=== PATIENT | female | born 1940 | race Caucasian/White ===

== ENCOUNTER 2017-05-03 15:42 | Outpatient (CLI) | payer MEDICARE, OTHER | END 2017-05-03 15:43 | disposition home or self-care (01) | LOC: LAB.R 15:42 | PROVIDERS: ATTEND Nurse Practitioner Primary Care | DX: M16.11 Unilateral primary osteoarthritis, right hip (principal); Z01.812 Encounter for preprocedural laboratory examination | CPT/HCPCS: 87081; 87640 ==

== ENCOUNTER 2017-05-04 07:55 | Outpatient (CLI) | payer MEDICARE, OTHER ==
[2017-05-04 15:48] LABS: BASOPHILS % (AUTO) 0.6 %; EOSINOPHILS # (AUTO) 0.1 10^3/uL (0.0-0.7); EOSINOPHILS % (AUTO) 1.3 %; HCT - HEMATOCRIT 38.5 % (37.0-47.0); HGB - HEMOGLOBIN 12.9 g/dL (12.0-16.0); LYMPHOCYTES # (AUTO) 1.2 10^3/uL (1.5-3.5); LYMPHOCYTES % (AUTO) 31.1 %; MEAN CORPUSCULAR HEMOGLOBIN 32.5 pg (27.0-31.0); MEAN CORPUSCULAR HGB CONC 33.5 g/dL (32.0-36.0); MEAN CORPUSCULAR VOLUME 97.1 fL (81.0-99.0); MEAN PLATELET VOLUME 8.3 fL (7.9-10.8); MONOCYTES # (AUTO) 0.4 10^3/uL (0.0-1.0); MONOCYTES % (AUTO) 10.8 %; NEUTROPHILS # (AUTO) 2.2 10^3/uL (1.5-6.6); NEUTROPHILS % (AUTO) 56.2 %; NUCLEATED RED BLOOD CELLS AUTO 0.1 /100WBC; RED BLOOD COUNT 3.97 10^6/uL (4.20-5.40); RED CELL DISTRIBUTION WIDTH 13.1 % (12.0-15.0); UNCORRECTED WHITE BLOOD COUNT 3.9 x10^3/uL; WHITE BLOOD COUNT 3.9 x10^3/uL (4.8-10.8)
[2017-05-04 15:56] LABS: ALBUMIN/GLOBULIN RATIO 1.4 (1.0-2.2); BILIRUBIN,TOTAL 0.9 mg/dL (0.2-1.0); CALCIUM 8.9 mg/dL (8.5-10.3); CREATININE 0.9 mg/dL (0.4-1.0); TOTAL PROTEIN 7.1 g/dL (6.7-8.2)
== END 2017-05-04 07:56 | disposition home or self-care (01) ==
LOC: LAB.R 07:55
PROVIDERS: ATTEND Nurse Practitioner Primary Care
DX: M16.11 Unilateral primary osteoarthritis, right hip (principal); Z01.812 Encounter for preprocedural laboratory examination; Z01.818 Encounter for other preprocedural examination
CPT/HCPCS: 80053; 85025

== ENCOUNTER 2017-06-13 06:10 | Inpatient (IN) | payer MEDICARE, OTHER ==
[2017-06-13] MEDS ORDERED: LACTATED RINGERS 1,000 ML IV ONE ×2 (06:27→08:20)
[2017-06-13] MEDS ORDERED: ceFAZolin 2 GM/50 ML 50 ML IV ONE (06:33)
[2017-06-13] MEDS ORDERED: BUPIVACAINE 0.5%-EPI 1:200000 PF 10 ML VIAL SUBQ ONE (08:15)
[2017-06-13] MEDS ORDERED: MORPHINE PF 5 MG/10 ML AMP SUBQ ONE ×2 (08:15→09:14)
[2017-06-13] MEDS ORDERED: ROPIVACAINE 0.2% PF 20 ML AMPULE SUBQ ONE ×2 (08:15→09:14)
[2017-06-13] MEDS ORDERED: KETOROLAC 15 MG/ML VIAL IVP ONE ×2 (08:15→09:14)
[2017-06-13] MEDS ORDERED: EPINEPHrine 1 MG/ML AMP IVP ONE ×2 (08:15→09:14)
[2017-06-13] MEDS ORDERED: DEXAMETHASONE 4 MG/ML VIAL IVP ONE (08:20)
[2017-06-13] MEDS ORDERED: ONDANSETRON 4 MG/2 ML VIAL IVP ONE (08:20)
[2017-06-13] MEDS ORDERED: ACETAMINOPHEN 1,000 MG/100 ML 100 ML IV ONE (08:20)
[2017-06-13] MEDS ORDERED: PROPOFOL 200 MG/20 ML VIAL IVP ONE (08:20)
[2017-06-13] MEDS ORDERED: ePHEDrine 50 MG/ML VIAL IVP ONE (08:20)
[2017-06-13] MEDS ORDERED: fentaNYL 100 MCG/2 ML VIAL IVP ONE (08:20)
[2017-06-13] MEDS ORDERED: MIDAZOLAM 2 MG/2 ML VIAL IVP ONE (08:20)
[2017-06-13] MEDS ORDERED: KETOROLAC 30 MG/ML VIAL IVP ONE (08:20)
[2017-06-13] MEDS ORDERED: TRANEXAMIC ACID 1,000 MG/10 ML VIAL IV ONE (08:20)
[2017-06-13] MEDS ORDERED: PROCHLORPERAZINE 10 MG/2 ML VIAL IVP PRN (09:36)
[2017-06-13] MEDS ORDERED: SODIUM CHLORIDE FLUSH 0.9% 10 ML SYRINGE IVP PRN (09:36)
[2017-06-13] MEDS ORDERED: oxyCOD/ACETAMIN 5 MG/325 MG TABLET PO PRN (09:36)
[2017-06-13] MEDS ORDERED: HYDROmorphone 1 MG/ML SYRINGE IVP PRN (09:36)
--- NOTE | 2017-06-13 09:36 | OPERATIVE REPORT ---
Operative Report - General Admit Date: 06/13/17 Procedure Date: 06/13/17 Planned Procedure: Right VIRI Pre-Op Diagnosis: djd RIGHT HIP Procedure Performed: rIGHT viri Post Op Diagnosis: same - Procedure Note Primary Surgeon: morena Anesthesia Technique: Spinal Estimated Blood Loss (mL): 200
--- NOTE | 2017-06-13 10:41 | XRAY Report ---
RIGHT HIP AND PELVIS: 06/13/2017 CLINICAL INDICATION: Post-op hip replacement. FINDINGS: Frontal view of the hips and pelvis and cross table lateral view of the right hip demonstr ate a right hip replacement in place. There is no evidence of fracture or hardware complication. IMPRESSION: EXPECTED POSTOPERATIVE APPEARANCE OF RIGHT HIP REPLACEMENT. JOB #: [id number] EXT JOB #:[id number]
[2017-06-13] MEDS: SODIUM CHLORIDE 0.45% 1,000 ML IV SCH ×2 (10:55→20:22)
[2017-06-13] MEDS: ONDANSETRON 4 MG/2 ML VIAL IVP PRN ×2 (11:03→18:44)
[2017-06-13] MEDS: SODIUM CHLORIDE FLUSH 0.9% 10 ML SYRINGE IVP SCH ×2 (13:48→18:44)
--- NOTE | 2017-06-13 14:02 | OPERATIVE REPORT ---
DATE OF SURGERY: 06/13/2017 00:00:00 PREOPERATIVE DIAGNOSIS: Right hip osteoarthritis. POSTOPERATIVE DIAGNOSIS: Right hip osteoarthritis. NAME OF PROCEDURE: Right hip total hip arthroplasty. SURGEON: Kristyn Hurt MD ANESTHESIA: Spinal, Renan Whitt. INDICATIONS FOR SURGERY: The patient is a 76-year-old female with progressive osteoarthritis of her r ight hip causing her limping and functional limitations and not responding to conservative care. She now elects total hip arthroplasty. FINDINGS AT SURGERY: The patient's hip showed [id number] articulation, overgrowth of spurring on th e femoral head and malformation of the femoral head due to deformity. The patient had synovitis of th e hip joint. DESCRIPTION OF OPERATIVE PROCEDURE: The patient was taken to the operating room and given a spinal an esthetic. She was placed in a supine position appropriate for an anterior approach with a wedge betwe en her sacrum and positioned so that the break in the table could allow extension of the hip. Both hi ps were sterilely prepped and draped in standard fashion. An [place] drape was used to isolate the area of the anterolateral approach, and a timeout was held, and then, a 7 cm to 8 cm incision was made in appropriate plane angled off the anterior superior iliac crest towards the greater trochanter. The i nterval was developed retracting the tensor fascia laterally and the remaining tissues medially and d iving directly down onto the anterior hip capsule, and this interval was developed. Soft tissue remov ed. Electrocautery controlled bleeding. Capsule was excised, and retractors were positioned intracaps ular to allow exposure of the femoral neck where an osteotomy was made and the femoral head removed. Then, retractors were positioned around the acetabulum for preparation and insertion of an acetabular cup, and reaming was taken up to 49 mm to accommodate a 50 mm G7 Biomet cup, which was inserted and fixed with a 30 mm screw with poly inserted that was standard poly in the cup E1 antioxidant. The fem ur was then brought into the field by special placement of retractors and release of some of the caps ule and tissues around the neck of the femur, drawing the femur into position with a break in the tab le and the leg placed into adduction and external rotation. This allowed direct insertion of reamers into the proximal femur and broaches, taking the broaching to a size 10 for insertion of the Taperloc stem, which was a standard offset type 1 taper in an 11 x 142 size stem. The stem was inserted, and trial reduction was done off the neck, and the appropriate head size was a standard head size with 38 mm diameter head. This restored limb lengths to very close to normal given the patient had about a 1 inch deficit to begin with and was within millimeters of equal. The area was irrigated very thorough ly. The hip was checked for stability and was excellent. Closure was with FiberWire in the fascial la tracy, followed by Vicryl in subcutaneous tissue and Monocryl in skin. Sterile dressings were applied, and the patient was taken to recovery room in stable condition. ESTIMATED BLOOD LOSS: Minimal. COMPLICATIONS: None. SPONGE AND NEEDLE COUNTS: Correct. IMPLANTS: The implanted components were Biomet G7 three hole cup, 50 mm shell, G7 liner of E1 antioxi dant infused, 36 mm head size D liner. The stem used was a Taperloc porous stem 11 x 142 mm. JOB #: [id number] EXT JOB #:[id number]
[2017-06-13] MEDS: ceFAZolin 2 GM/50 ML 50 ML IV SCH ×2 (15:08→20:22)
[2017-06-13] MEDS: ATORVASTATIN 10 MG TABLET PO SCH (20:22)
[2017-06-14 05:28] LABS: HCT - HEMATOCRIT 30.6 % (37.0-47.0); HGB - HEMOGLOBIN 10.6 g/dL (12.0-16.0)
[2017-06-14 05:37] LABS: CALCIUM 8.2 mg/dL (8.5-10.3); CREATININE 0.9 mg/dL (0.4-1.0); POTASSIUM 4.2 mmol/L (3.5-5.0)
[2017-06-14] MEDS: SODIUM CHLORIDE 0.45% 1,000 ML IV SCH ×2 (06:38→07:02)
[2017-06-14] MEDS: SODIUM CHLORIDE FLUSH 0.9% 10 ML SYRINGE IVP SCH ×3 (06:38→20:10)
--- NOTE | 2017-06-14 07:34 | PROVIDER PROGRESS NOTE ---
Subjective - General Admit Date: 06/13/17 Procedure Date: 06/13/17 Post Op Days: 1 Procedure Performed: right Total Hip Arthroplasty - Review of Systems Wound/Incisions: positive: Dressing dry and intact Gastrointestinal: positive: No symptoms Musculoskeletal: positive: Joint pain Objective - Patient Data Reviewed Vital Signs: Yes Vital Signs: Vital Signs x48h Temp Pulse Resp BP Pulse Ox 06/14/17 05:42 36.9 C 73 18 113/51 L 999 H 06/14/17 00:30 36.5 C 73 18 113/62 100 Weight: Weight 06/12/17 06/13/17 06/14/17 23:59 23:59 23:59 Weight (kg) 80 kg Intake & Output: Intake and Output Totals x24h 06/12/17 06/13/17 06/14/17 23:59 23:59 23:59 Intake Total 2970 300 Output Total 1800 1700 Balance 1170 -1400 - Lab Results Lab Results: 06/14/17 04:47 06/14/17 04:47 Other Lab Results: Lab Results x24hrs 06/14/17 06/14/17 Range/Units 04:47 04:47 Hgb 10.6 L (12.0-16.0) g/dL Hct 30.6 L (37.0-47.0) % Sodium 135 (135-145) mmol/L Potassium 4.2 (3.5-5.0) mmol/L Chloride 103 (101-111) mmol/L Carbon Dioxide 24 (21-32) mmol/L Anion Gap 8.0 (6-13) BUN 15 (6-20) mg/dL Creatinine 0.9 (0.4-1.0) mg/dL Estimated GFR (MDRD) 61 L (>89) Glucose 138 H (70-100) mg/dL Calcium 8.2 L (8.5-10.3) mg/dL - Imaging Results Radiology Imaging: positive: EMP read indepedently - Current Medications Current Medications: Current Medications Generic Name Dose Route Start Last Admin Trade Name Freq PRN Reason Stop Dose Admin Atorvastatin Calcium 20 mg 06/13/17 21:00 06/13/17 20:22 Lipitor PO 20 mg QPM ESTHER Administration Sodium Chloride 1,000 mls @ 100 mls/hr 06/13/17 10:00 06/14/17 07:02 Normal Saline 0.45% IV 100 mls/hr .Q10H ESTHER Administration Ondansetron HCl 4 mg 06/13/17 09:36 06/13/17 18:44 Zofran Inj IVP 4 mg Q6HR PRN Administration Nausea / Vomiting Sodium Chloride 10 ml 06/13/17 09:36 06/13/17 20:22 Normal Saline Flush 0.9% IVP 10 ml PRN PRN Administration NEEDED PER PROVIDER ORDERS Sodium Chloride 10 ml 06/13/17 14:00 06/14/17 06:38 Normal Saline Flush 0.9% IVP Not Given Q8HR ESTHER - Physical Exam Wound/Incisions: positive: Dressing dry and intact Neurologic/Psychiatric: positive: Motor nml, Sensation nml, Mood/affect nml Impression/Plan - Problem List Problem List: POD #1 Pt is doing well Will begin more aggressive PT
[2017-06-14] MEDS: ATENOLOL 25 MG TABLET PO SCH (08:05)
[2017-06-14] MEDS: MULTIVITAMIN TABLET PO SCH (08:05)
[2017-06-14] MEDS: ENOXAPARIN 40 MG/0.4 ML SYRINGE SUBQ SCH (08:06)
[2017-06-14] MEDS: TIMOLOL 0.25% OPHTH DROPS EACHEYE SCH (08:20)
[2017-06-14] MEDS ORDERED: SODIUM CHLORIDE 0.45% 1,000 ML IV SCH ×3 (08:33→11:00)
[2017-06-14] MEDS: CYCLOSPORINE OPTHALMIC EACHEYE SCH ×2 (08:56→21:39)
[2017-06-14] MEDS ORDERED: NON FORMULARY MED (Cyclosporine [Restasis] 1 DROPS) EACHEYE SCH (09:00)
[2017-06-14] MEDS ORDERED: POLYETHYLENE GLYCOL 3350 17 GM PACKET PO SCH (09:00)
[2017-06-14] MEDS: ACETAMINOPHEN 325 MG TABLET PO PRN ×2 (09:45→16:42)
[2017-06-14] MEDS: ATORVASTATIN 10 MG TABLET PO SCH (21:38)
[2017-06-15 05:56] LABS: HCT - HEMATOCRIT 28.7 % (37.0-47.0); HGB - HEMOGLOBIN 9.9 g/dL (12.0-16.0); MEAN CORPUSCULAR HGB CONC 34.4 g/dL (32.0-36.0); MEAN PLATELET VOLUME 8.6 fL (7.9-10.8); RED BLOOD COUNT 2.99 10^6/uL (4.20-5.40); RED CELL DISTRIBUTION WIDTH 13.8 % (12.0-15.0)
[2017-06-15] MEDS: SODIUM CHLORIDE FLUSH 0.9% 10 ML SYRINGE IVP SCH ×3 (06:16→20:41)
[2017-06-15] MEDS: TIMOLOL 0.25% OPHTH DROPS EACHEYE SCH (08:22)
[2017-06-15] MEDS: ENOXAPARIN 40 MG/0.4 ML SYRINGE SUBQ SCH (08:23)
[2017-06-15] MEDS: CYCLOSPORINE OPTHALMIC EACHEYE SCH ×2 (08:23→20:41)
[2017-06-15] MEDS: MULTIVITAMIN TABLET PO SCH (08:23)
[2017-06-15] MEDS: ATENOLOL 25 MG TABLET PO SCH (08:23)
[2017-06-15] MEDS: ACETAMINOPHEN 325 MG TABLET PO PRN (10:35)
--- NOTE | 2017-06-15 10:49 | PROVIDER PROGRESS NOTE ---
Subjective - General Admit Date: 06/13/17 Procedure Date: 06/13/17 Post Op Days: 2 Procedure Performed: right Total Hip Arthroplasty - Review of Systems Wound/Incisions: positive: Dressing dry and intact General: positive: No symptoms Gastrointestinal: positive: No symptoms Musculoskeletal: positive: Joint pain Objective - Patient Data Reviewed Vital Signs: Yes Vital Signs: Vital Signs x48h Temp Pulse Resp BP Pulse Ox 06/15/17 07:48 37.8 C H 92 18 117/54 L 94 06/15/17 04:00 37.8 C H 93 20 129/53 L 94 Weight: Weight 06/13/17 06/14/17 06/15/17 23:59 23:59 23:59 Weight (kg) 80 kg Intake & Output: Intake and Output Totals x24h 06/13/17 06/14/17 06/15/17 23:59 23:59 23:59 Intake Total 2970 2440 732 Output Total 1800 2500 550 Balance 1170 -60 182 - Lab Results Lab Results: 06/15/17 04:49 06/14/17 04:47 Other Lab Results: Lab Results x24hrs 06/15/17 Range/Units 04:49 WBC 5.0 (4.8-10.8) x10^3/uL RBC 2.99 L (4.20-5.40) 10^6/uL Hgb 9.9 L (12.0-16.0) g/dL Hct 28.7 L (37.0-47.0) % MCV 96.0 (81.0-99.0) fL MCH 33.0 H (27.0-31.0) pg MCHC 34.4 (32.0-36.0) g/dL RDW 13.8 (12.0-15.0) % Plt Count 153 (130-450) 10^3/uL MPV 8.6 (7.9-10.8) fL - Current Medications Current Medications: Current Medications Generic Name Dose Route Start Last Admin Trade Name Freq PRN Reason Stop Dose Admin Acetaminophen 650 - 975 mg 06/13/17 09:36 06/15/17 10:35 Tylenol PO 650 mg Q4HR PRN Administration PAIN Atenolol 25 mg 06/14/17 09:00 06/15/17 08:23 Tenormin PO 25 mg DAILY ESTHER Administration Atorvastatin Calcium 20 mg 06/13/17 21:00 06/14/17 21:38 Lipitor PO 20 mg QPM ESTHER Administration Enoxaparin Sodium 40 mg 06/14/17 09:00 06/15/17 08:23 Lovenox SUBQ 40 mg DAILY ESTHER Administration Sodium Chloride 1,000 mls @ 0 mls/hr 06/14/17 11:00 06/15/17 06:15 Normal Saline 0.45% IV 30 mls/hr .Q0M ESTHER Administration TKO Multivitamins 1 tab 06/14/17 08:00 06/15/17 08:23 Theragran PO 1 tab DAILYWM ESTHER Administration Ondansetron HCl 4 mg 06/13/17 09:36 06/13/17 18:44 Zofran Inj IVP 4 mg Q6HR PRN Administration Nausea / Vomiting (Cyclosporine [ 1 each 06/14/17 09:00 06/15/17 08:23 Restasis] Opthalmic EACHEYE 1 each Drops) BID ESTHER Administration Sodium Chloride 10 ml 06/13/17 09:36 06/13/17 20:22 Normal Saline Flush 0.9% IVP 10 ml PRN PRN Administration NEEDED PER PROVIDER ORDERS Sodium Chloride 10 ml 06/13/17 14:00 06/15/17 06:16 Normal Saline Flush 0.9% IVP Not Given Q8HR ESTHER Timolol Maleate 1 drops 06/14/17 09:00 06/15/17 08:22 Timoptic 0.25% Ophth Drops EACHEYE 1 drops DAILY ESTHER Administration - Physical Exam Wound/Incisions: positive: Dressing dry and intact Abdomen: positive: Non-tender Impression/Plan - Problem List Problem List: POD #2 Pt is more comfortable today and doing well with PT. Plan on D/C to home in am.
[2017-06-15] MEDS: ATORVASTATIN 10 MG TABLET PO SCH (20:40)
[2017-06-16] MEDS: ACETAMINOPHEN 325 MG TABLET PO PRN (03:35)
[2017-06-16] MEDS: SODIUM CHLORIDE FLUSH 0.9% 10 ML SYRINGE IVP SCH (05:47)
--- NOTE | 2017-06-16 08:39 | PROVIDER PROGRESS NOTE ---
Subjective - General Admit Date: 06/13/17 Procedure Date: 06/13/17 Post Op Days: 3 Procedure Performed: right Total Hip Arthroplasty - Review of Systems Wound/Incisions: positive: Dressing dry and intact General: positive: No symptoms Gastrointestinal: positive: No symptoms Musculoskeletal: positive: Joint pain Objective - Patient Data Reviewed Vital Signs: Yes Vital Signs: Vital Signs x48h Temp Pulse Resp BP Pulse Ox 06/16/17 03:35 37.1 C 84 18 128/51 L 94 Intake & Output: Intake and Output Totals x24h 06/14/17 06/15/17 06/16/17 23:59 23:59 23:59 Intake Total 2440 1715 Output Total 2500 600 500 Balance -60 1115 -500 - Lab Results Lab Results: 06/15/17 04:49 06/14/17 04:47 - Current Medications Current Medications: Current Medications Generic Name Dose Route Start Last Admin Trade Name Freq PRN Reason Stop Dose Admin Acetaminophen 650 - 975 mg 06/13/17 09:36 06/16/17 03:35 Tylenol PO 650 mg Q4HR PRN Administration PAIN Atenolol 25 mg 06/14/17 09:00 06/15/17 08:23 Tenormin PO 25 mg DAILY ESTHER Administration Atorvastatin Calcium 20 mg 06/13/17 21:00 06/15/17 20:40 Lipitor PO 20 mg QPM ESTHER Administration Enoxaparin Sodium 40 mg 06/14/17 09:00 06/15/17 08:23 Lovenox SUBQ 40 mg DAILY ESTHER Administration Sodium Chloride 1,000 mls @ 0 mls/hr 06/14/17 11:00 06/15/17 06:15 Normal Saline 0.45% IV 30 mls/hr .Q0M ESTHER Administration TKO Multivitamins 1 tab 06/14/17 08:00 06/15/17 08:23 Theragran PO 1 tab DAILYWM ESTHER Administration Ondansetron HCl 4 mg 06/13/17 09:36 06/13/17 18:44 Zofran Inj IVP 4 mg Q6HR PRN Administration Nausea / Vomiting (Cyclosporine [ 1 each 06/14/17 09:00 06/15/17 20:41 Restasis] Opthalmic EACHEYE 1 each Drops) BID ESTHER Administration Sodium Chloride 10 ml 06/13/17 09:36 06/13/17 20:22 Normal Saline Flush 0.9% IVP 10 ml PRN PRN Administration NEEDED PER PROVIDER ORDERS Sodium Chloride 10 ml 06/13/17 14:00 06/16/17 05:47 Normal Saline Flush 0.9% IVP Not Given Q8HR ESTHER Timolol Maleate 1 drops 06/14/17 09:00 06/15/17 08:22 Timoptic 0.25% Ophth Drops EACHEYE 1 drops DAILY ESTHER Administration - Physical Exam Wound/Incisions: positive: Healing well Extremities: positive: Joint swelling Neurologic/Psychiatric: positive: Motor nml, Sensation nml, Mood/affect nml Impression/Plan - Problem List Problem List: pOD#3 Pt is ready for d/c to home. instructions given and f/u in clinic next week.
--- NOTE | 2017-06-16 08:43 | Discharge Plan ---
Discharge Plan Disposition: Home, Self Care Condition: Good Prescriptions: oxyCODONE/ACET 5/325 [Percocet 5 mg/325 mg] 1 tab PO Q4HR PRN #20 tablet PRN Reason: Pain Enoxaparin [Lovenox] 40 mg SUBQ DAILY #10 syringe Sennosides [Senna Laxative] 8.6 mg PO 1-2XD PRN #20 tablet PRN Reason: Constipation Diet: Regular Activity Restrictions: Wt Bearing as Tolerated Shower Restrictions: Yes (cover right hip wound) Driving Restrictions: Yes (no driving) Assistance Devices: Walker Weight Bearing: Full Weight Additional Instructions or Follow Up instructions: F/U in ortho clinic in 1 week. No Smoking: If you smoke, Please STOP! Call for help. Follow-up with: Marisa Carrington PA-C [Primary Care Provider] - Kristyn Hurt MD [Provider Admit Priv/Credential] -
[2017-06-16 08:52] VITALS: BP 107/46
[2017-06-16] MEDS: ENOXAPARIN 40 MG/0.4 ML SYRINGE SUBQ SCH (09:22)
[2017-06-16] MEDS: MULTIVITAMIN TABLET PO SCH (09:22)
[2017-06-16] MEDS: ATENOLOL 25 MG TABLET PO SCH (09:22)
[2017-06-16] MEDS: TIMOLOL 0.25% OPHTH DROPS EACHEYE SCH (09:23)
[2017-06-16] MEDS: CYCLOSPORINE OPTHALMIC EACHEYE SCH (09:23)
--- NOTE | 2017-06-19 16:38 | DISCHARGE SUMMARY ---
DATE OF ADMISSION: 06/13/2017 DATE OF DISCHARGE: 06/16/2017 DATE OF SURGERY: 06/13/2017, a right total hip arthroplasty. REASON FOR ADMISSION: The patient is a 76-year-old female with increasing pain in her right hip secon aby to osteoarthritis. The patient has failed conservative care and desires total hip arthroplasty. The patient's prior medical history and medications are detailed in her admit note. HOSPITAL COURSE: The patient was admitted and underwent surgery on 06/13/2017. The patient tolerated this procedure well and was admitted to the medical/surgical floor for standard postoperative care af ter hip replacement including IV antibiotics, early physical therapy, DVT prophylaxis and pain contro l. At the time of discharge, the patient was ambulatory with a walker. She was having very little dis comfort. She was utilizing Lovenox injections for DVT prophylaxis. At this point, she was discharged to home with planned followup in my office within a week. Her medications were to be Tylenol for pain and Lovenox injections and laxatives for constipation. JOB #: [id number] EXT JOB #:[id number]
== END 2017-06-16 10:30 | disposition home or self-care (01) | DRG 470 ==
LOC: MS3 06:10
PROVIDERS: ADMIT Orthopaedic Surgery; ATTEND Orthopaedic Surgery
PROC: 0SR902Z Replacement of Right Hip Joint with Metal on Polyethylene Synthetic Substitute, Open Approach (ICD-10-PCS; principal; 2017-06-13 07:30)
DX: M16.11 Unilateral primary osteoarthritis, right hip (principal); G89.29 Other chronic pain; I10 Essential (primary) hypertension
CPT/HCPCS: 36415; 80048; 85014; 85018

== ENCOUNTER → 2018-06-12 | Outpatient (CLI) | payer MEDICARE, OTHER ==
[2018-06-12 17:09] LABS: BASOPHILS % (AUTO) 0.8 %; EOSINOPHILS # (AUTO) 0.1 10^3/uL (0.0-0.7); EOSINOPHILS % (AUTO) 1.6 %; HGB - HEMOGLOBIN 14.1 g/dL (12.0-16.0); LYMPHOCYTES # (AUTO) 1.2 10^3/uL (1.5-3.5); LYMPHOCYTES % (AUTO) 31.3 %; MEAN CORPUSCULAR HGB CONC 34.3 g/dL (32.0-36.0); MEAN CORPUSCULAR VOLUME 93.4 fL (81.0-99.0); MEAN PLATELET VOLUME 9.1 fL (7.9-10.8); MONOCYTES # (AUTO) 0.4 10^3/uL (0.0-1.0); MONOCYTES % (AUTO) 10.9 %; NEUTROPHILS # (AUTO) 2.1 10^3/uL (1.5-6.6); NEUTROPHILS % (AUTO) 55.4 %; PLT - PLATELET COUNT 206 10^3/uL (130-450); RED CELL DISTRIBUTION WIDTH 13.3 % (12.0-15.0); WHITE BLOOD COUNT 3.7 x10^3/uL (4.8-10.8)
[2018-06-12 17:17] LABS: ALBUMIN 4.3 g/dL (3.2-5.5); ALBUMIN/GLOBULIN RATIO 1.4 (1.0-2.2); ALKALINE PHOSPHATASE 74 IU/L (42-121); ALT ALANINE AMINOTRANSFERASE 17 IU/L (10-60); AST ASPARTATE AMINOTRANSFERASE 17 IU/L (10-42); BILIRUBIN,TOTAL 0.9 mg/dL (0.2-1.0); BUN - BLOOD UREA NITROGEN 22 mg/dL (6-20); CARBON DIOXIDE - CO2 26 mmol/L (21-32); CHLORIDE 102 mmol/L (101-111); CHOL/HDL RATIO 3.2 (<4.4); CHOLESTEROL 199 mg/dL; CREATININE 0.8 mg/dL (0.4-1.0); GFR - MDRD 70 (>89); GLUCOSE 93 mg/dL (70-100); HDL CHOLESTEROL 63 mg/dL; LDL CHOLESTEROL,CALCULATED 103 mg/dL; LDL/HDL RATIO 1.6 (<4.4); SODIUM 137 mmol/L (135-145); TOTAL PROTEIN 7.3 g/dL (6.7-8.2); VLDL CHOLESTEROL 33 mg/dL
== END ==
LOC: LAB.R 08:00
PROVIDERS: ATTEND Physician Assistant Medical
DX: Z79.899 Other long term (current) drug therapy (principal); G60.9 Hereditary and idiopathic neuropathy, unspecified; E78.2 Mixed hyperlipidemia; M15.9 Polyosteoarthritis, unspecified; I10 Essential (primary) hypertension
CPT/HCPCS: 80053; 80061; 82306; 83721; 84443; 85025

== ENCOUNTER 2018-06-29 08:06 | Outpatient (CLI) | payer MEDICARE, OTHER ==
--- NOTE | 2018-07-02 13:36 | Mammography Report ---
Reason: SCREENING MAMMO Procedure Date: 06/29/2018 Accession Number: [id number] / [id number] Procedure: JEFF - Screening Mammo Dig Bilat CPT Code: FULL RESULT: EXAM: Screening Mammo Dig Bilat DATE: 06/29/2018 8:31 AM CLINICAL HISTORY: 77 year-old nulliparous female presents for screening mammogram. TECHNIQUE: Bilateral CC and MLO views were obtained. COMPARISON: 05/30/2016, 06/13/2014, 11/08/2011, 10/07/2009. FINDINGS: The breasts demonstrate scattered fibroglandular densities bilaterally. A 3.5 mm hyperdense nodule in the left breast at the 8:00 position approximately 6.5 cm deep to the nipple is not definitely seen on previous studies and requires additional imaging including spot views, possible, symphysis and possible ultrasound. No suspicious masses, clustered microcalcifications, or regions of architectural distortion are identified. IMPRESSION: Incomplete examination RECOMMENDATION: Additional evaluation as above. BIRADS CATEGORY 0: Incomplete examination STANDARD QUALIFYING STATEMENTS: 1. This examination was not reviewed with the aid of Computer-Aided Detection (CAD). 2. A negative or benign imaging report should not delay biopsy if clinically suspicious findings are present. Consider surgical consultation if warrented. More than 5% of cancers are not identified by imaging. 3. Dense breasts may obscure an underlying neoplasm. 4. This examination was reviewed without the aid of 3D breast imaging (tomosynthesis).
== END 2018-06-29 08:07 | disposition home or self-care (01) ==
LOC: DI 08:06
PROVIDERS: ATTEND Physician Assistant Medical
DX: Z12.31 Encounter for screening mammogram for malignant neoplasm of breast (principal); R92.8 Other abnormal and inconclusive findings on diagnostic imaging of breast
CPT/HCPCS: 77067

== ENCOUNTER 2018-07-27 08:56 | Outpatient (CLI) | payer MEDICARE, OTHER ==
--- NOTE | 2018-07-27 10:25 | Mammography Report ---
Reason: ABN MAMMO - LT SPEC VIEWS Procedure Date: 07/27/2018 Accession Number: [id number] / [id number] Procedure: JEFF - Diag Special Views Dig LT CPT Code: FULL RESULT: EXAM: Diag Special Views Dig LT, Breast Unilateral Limited DATE: 07/27/2018 9:23 AM CLINICAL HISTORY: Follow-up abnormal mammogram 06/29/2018 COMPARISON: 06/29/2018 ADDITIONAL VIEWS LEFT BREAST TECHNIQUE: Spot compression CC and MLO projections left breast with additional true lateral view and tomography. FINDINGS: The 3.5 mm hyperdense nodule in the 6:00 position left breast 5 to 6 cm to the nipple persists on additional views. LEFT BREAST ULTRASOUND: TECHNIQUE: Real-time scanning by the tire bladder maker with saved static images reviewed. FINDINGS: In the 6:00 position left breast 5 cm from the nipple there is a round hypo- to anechoic avascular 3 mm well-circumscribed nodule consistent with either a simple cyst or a small intramammary lymph node. No suspicious features are seen. IMPRESSION: Benign findings RECOMMENDATION: Follow-up left breast ultrasound in 6 months to confirm stability. BIRADS CATEGORY 2: Benign findings STANDARD QUALIFYING STATEMENTS: 1. This examination was reviewed with the aid of Computer-Aided Detection (CAD). 2. A negative or benign imaging report should not delay biopsy if clinically suspicious findings are present. Consider surgical consultation if warrented. More than 5% of cancers are not identified by imaging. 3. Dense breasts may obscure an underlying neoplasm.
== END 2018-07-27 08:57 | disposition home or self-care (01) ==
LOC: DI 08:56
PROVIDERS: ATTEND Physician Assistant Medical
DX: R92.2 Inconclusive mammogram (principal)
CPT/HCPCS: 76642

== ENCOUNTER 2019-02-26 10:43 | Outpatient (CLI) | payer MEDICARE, OTHER ==
--- NOTE | 2019-02-26 15:32 | Ultrasound Report ---
Reason: ABNORMAL MAMMO, LEFT BREAST Procedure Date: 02/26/2019 Accession Number: [id number] / [id number] Procedure: US - Breast Unilateral Limited CPT Code: FULL RESULT: EXAM: Breast Unilateral Limited DATE: 02/26/2019 11:21 AM CLINICAL HISTORY: Follow-up abnormal mammogram and left breast ultrasound 6 months previous COMPARISON: Ultrasound 07/27/2018 TECHNIQUE: Targeted ultrasound was performed of the left breast in the area of clinical concern at 6:00 and 5 cm distance from the nipple. Color Doppler was employed as appropriate. FINDINGS: The round avascular hypoechoic to anechoic 3 mm nodule is unchanged in appearance compared to the prior study. No suspicious features are identified. IMPRESSION: Benign findings left breast 6:00 position 5 cm from the nipple. RECOMMENDATION: Routine screening bilateral mammography in 6 months with left breast ultrasound at that time to confirm stability. BIRADS CATEGORY 2: Benign findings RADIA
== END 2019-02-26 10:44 | disposition home or self-care (01) ==
LOC: DI 10:43
PROVIDERS: ATTEND Nurse Practitioner
DX: R92.8 Other abnormal and inconclusive findings on diagnostic imaging of breast (principal)
CPT/HCPCS: 76642

== ENCOUNTER 2019-05-06 | Outpatient (CLI) | payer MEDICARE, OTHER | END 2019-05-06 23:59 | disposition home or self-care (01) | DX: R30.0 Dysuria (principal) ==

== ENCOUNTER 2019-06-07 08:00 | Outpatient (CLI) | payer MEDICARE, OTHER | END 2019-06-07 23:59 | disposition home or self-care (01) | LOC: LAB.R 08:00 | PROVIDERS: ATTEND Family Medicine | DX: N39.0 Urinary tract infection, site not specified (principal) | CPT/HCPCS: 87086 ==

== ENCOUNTER 2019-06-19 08:44 | Outpatient (CLI) | payer MEDICARE, OTHER ==
[2019-06-19 09:04] LABS: BASOPHILS # (AUTO) 0.1 10^3/uL (0.0-0.1); BASOPHILS % (AUTO) 1.2 %; EOSINOPHILS # (AUTO) 0.1 10^3/uL (0.0-0.7); EOSINOPHILS % (AUTO) 1.6 %; HGB - HEMOGLOBIN 13.8 g/dL (12.0-16.0); LYMPHOCYTES # (AUTO) 1.4 10^3/uL (1.5-3.5); LYMPHOCYTES % (AUTO) 32.5 %; MEAN CORPUSCULAR HEMOGLOBIN 30.8 pg (27.0-31.0); MEAN CORPUSCULAR HGB CONC 32.3 g/dL (32.0-36.0); MEAN CORPUSCULAR VOLUME 95.3 fL (81.0-99.0); MEAN PLATELET VOLUME 9.7 fL (7.9-10.8); MONOCYTES # (AUTO) 0.5 10^3/uL (0.0-1.0); MONOCYTES % (AUTO) 10.4 %; NEUTROPHILS # (AUTO) 2.3 10^3/uL (1.5-6.6); NEUTROPHILS % (AUTO) 53.8 %; PLT - PLATELET COUNT 191 10^3/uL (130-450); RED BLOOD COUNT 4.48 10^6/uL (4.20-5.40); RED CELL DISTRIBUTION WIDTH 12.5 % (12.0-15.0); WHITE BLOOD COUNT 4.3 x10^3/uL (4.8-10.8)
[2019-06-19 09:23] LABS: ALBUMIN 4.2 g/dL (3.2-5.5); ALBUMIN/GLOBULIN RATIO 1.3 (1.0-2.2); BILIRUBIN,TOTAL 1.1 mg/dL (0.2-1.0); CALCIUM 9.1 mg/dL (8.5-10.3); CREATININE 0.8 mg/dL (0.4-1.0); TOTAL PROTEIN 7.4 g/dL (6.7-8.2)
[2019-06-19 09:28] LABS: CHOL/HDL RATIO 2.9 (<4.4); CHOLESTEROL 183 mg/dL; HDL CHOLESTEROL 64 mg/dL; LDL CHOLESTEROL,CALCULATED 92 mg/dL; LDL/HDL RATIO 1.4 (<4.4); VLDL CHOLESTEROL 27 mg/dL
== END 2019-06-19 08:45 | disposition home or self-care (01) ==
LOC: LAB 08:44
PROVIDERS: ATTEND Internal Medicine Gastroenterology
DX: Z00.00 Encounter for general adult medical examination without abnormal findings (principal); R19.5 Other fecal abnormalities; I10 Essential (primary) hypertension; E78.2 Mixed hyperlipidemia; Z79.899 Other long term (current) drug therapy
CPT/HCPCS: 36415; 80053; 80061; 83721; 84443; 85025

== ENCOUNTER 2019-10-30 09:41 | Outpatient (CLI) | payer MEDICARE, OTHER ==
--- NOTE | 2019-10-30 13:34 | Ultrasound Report ---
Reason: ROUTINE MAMMO,LT BREAST F U Procedure Date: 10/30/2019 Accession Number: [id number] / [id number] Procedure: US - Breast Unilateral Limited CPT Code: Final Report FULL RESULT: EXAM: Breast Unilateral Limited DATE: 10/30/2019 10:23 AM CLINICAL HISTORY: Follow-up abnormal mammogram and left breast ultrasound 6 months previous COMPARISON: Ultrasound 07/27/2018 and 02/18/2019. TECHNIQUE: Targeted ultrasound was performed of the left breast in the area of clinical concern at 6:00 and 5 cm distance from the nipple. Color Doppler was employed as appropriate. FINDINGS: The round avascular hypoechoic to anechoic 3 mm cystic lesion is unchanged in appearance compared to the prior study. There is posterior acoustic enhancement, a well demarcated thin wall and no appreciable solid soft tissue component, typically benign. No suspicious features are identified. IMPRESSION: Benign findings RECOMMENDATION: Recommend routine annual Screening mammography unless otherwise clinically indicated. BIRADS CATEGORY 2: Benign findings RADIA
== END 2019-10-30 09:42 | disposition home or self-care (01) ==
LOC: DI 09:41
PROVIDERS: ATTEND Nurse Practitioner
DX: R92.8 Other abnormal and inconclusive findings on diagnostic imaging of breast (principal)
CPT/HCPCS: 76642

== ENCOUNTER 2021-01-26 08:23 | Outpatient (CLI) | payer MEDICARE, OTHER ==
[2021-01-26 08:50] LABS: EOSINOPHILS # (AUTO) 0.1 10^3/uL (0.0-0.7); HCT - HEMATOCRIT 42.2 % (37.0-47.0); HGB - HEMOGLOBIN 14.1 g/dL (12.0-16.0); LYMPHOCYTES # (AUTO) 1.1 10^3/uL (1.5-3.5); LYMPHOCYTES % (AUTO) 27.4 %; MEAN CORPUSCULAR HEMOGLOBIN 32.3 pg (27.0-31.0); MEAN CORPUSCULAR HGB CONC 33.4 g/dL (32.0-36.0); MEAN CORPUSCULAR VOLUME 96.6 fL (81.0-99.0); MEAN PLATELET VOLUME 10.1 fL (7.9-10.8); MONOCYTES # (AUTO) 0.4 10^3/uL (0.0-1.0); MONOCYTES % (AUTO) 10.2 %; NEUTROPHILS # (AUTO) 2.4 10^3/uL (1.5-6.6); NEUTROPHILS % (AUTO) 59.2 %; PLT - PLATELET COUNT 171 10^3/uL (130-450); RED BLOOD COUNT 4.37 10^6/uL (4.20-5.40); RED CELL DISTRIBUTION WIDTH 12.2 % (12.0-15.0)
[2021-01-26 09:08] LABS: ALBUMIN 4.5 g/dL (3.2-5.5); ALBUMIN/GLOBULIN RATIO 1.5 (1.0-2.2); ALKALINE PHOSPHATASE 75 IU/L (42-121); ALT ALANINE AMINOTRANSFERASE 21 IU/L (10-60); AST ASPARTATE AMINOTRANSFERASE 19 IU/L (10-42); BILIRUBIN,TOTAL 1.2 mg/dL (0.2-1.0); BUN - BLOOD UREA NITROGEN 16 mg/dL (6-20); CALCIUM 9.2 mg/dL (8.5-10.3); CARBON DIOXIDE - CO2 27 mmol/L (21-32); CHLORIDE 104 mmol/L (101-111); CHOL/HDL RATIO 2.5 (<4.4); CHOLESTEROL 172 mg/dL; CREATININE 0.9 mg/dL (0.4-1.0); GFR - MDRD 61 (>89); GLUCOSE 96 mg/dL (70-100); HDL CHOLESTEROL 69 mg/dL; LDL CHOLESTEROL,CALCULATED 80 mg/dL; LDL/HDL RATIO 1.2 (<4.4); POTASSIUM 4.6 mmol/L (3.5-5.0); SODIUM 140 mmol/L (135-145); TOTAL PROTEIN 7.5 g/dL (6.7-8.2); TRIGLYCERIDES 116 mg/dL; VLDL CHOLESTEROL 23 mg/dL
[2021-01-26 09:20] LABS: THYROID STIMULATING HORMONE 3.02 uIU/mL (0.34-5.60)
== END 2021-01-26 08:24 | disposition home or self-care (01) ==
LOC: LAB 08:23
PROVIDERS: ATTEND Family Medicine
DX: I10 Essential (primary) hypertension (principal)
CPT/HCPCS: 36415; 80053; 80061; 83721; 84443; 85025

== ENCOUNTER 2021-04-13 09:59 | Day surgery (SDC) | payer MEDICARE, OTHER ==
[2021-04-13] MEDS ORDERED: LACTATED RINGERS 1,000 ML IV ONE ×2 (10:11→11:31)
[2021-04-13] MEDS ORDERED: MIDAZOLAM 2 MG/2 ML VIAL ONE ×2 (10:47)
[2021-04-13] MEDS ORDERED: fentaNYL 250 MCG/5 ML VIAL ONE (10:47)
[2021-04-13 12:39] VITALS: BP 167/76
== END 2021-04-13 10:00 | disposition home or self-care (01) ==
LOC: SDS 09:59
PROVIDERS: ATTEND Surgery
PROC: 3E0H8KZ Introduction of Other Diagnostic Substance into Lower GI, Via Natural or Artificial Opening Endoscopic (ICD-10-PCS; 2021-04-13)
PROC: 0DBN8ZZ Excision of Sigmoid Colon, Via Natural or Artificial Opening Endoscopic (ICD-10-PCS; principal; 2021-04-13 11:00)
DX: R19.5 Other fecal abnormalities (principal); D12.5 Benign neoplasm of sigmoid colon; K64.8 Other hemorrhoids; K64.4 Residual hemorrhoidal skin tags; K57.30 Diverticulosis of large intestine without perforation or abscess without bleeding
CPT/HCPCS: 45381; 45385; J3010; J7120

== ENCOUNTER 2021-08-04 08:00 | Outpatient (CLI) | payer MEDICARE, OTHER ==
[2021-08-04 17:56] LABS: BASOPHILS % (AUTO) 0.5 %; EOSINOPHILS # (AUTO) 0.4 10^3/uL (0.0-0.7); EOSINOPHILS % (AUTO) 7.5 %; HCT - HEMATOCRIT 45.1 % (37.0-47.0); HGB - HEMOGLOBIN 15.1 g/dL (12.0-16.0); LYMPHOCYTES # (AUTO) 1.5 10^3/uL (1.5-3.5); LYMPHOCYTES % (AUTO) 25.9 %; MEAN CORPUSCULAR HEMOGLOBIN 31.9 pg (27.0-31.0); MEAN CORPUSCULAR HGB CONC 33.5 g/dL (32.0-36.0); MEAN CORPUSCULAR VOLUME 95.3 fL (81.0-99.0); MEAN PLATELET VOLUME 10.8 fL (7.9-10.8); MONOCYTES # (AUTO) 0.5 10^3/uL (0.0-1.0); NEUTROPHILS # (AUTO) 3.4 10^3/uL (1.5-6.6); NEUTROPHILS % (AUTO) 57.9 %; PLT - PLATELET COUNT 215 10^3/uL (130-450); RED BLOOD COUNT 4.73 10^6/uL (4.20-5.40); WHITE BLOOD COUNT 5.9 x10^3/uL (4.8-10.8)
[2021-08-04 18:00] LABS: CALCIUM 9.7 mg/dL (8.5-10.3); CREATININE 0.9 mg/dL (0.4-1.0); POTASSIUM 4.4 mmol/L (3.5-5.0)
[2021-08-04 18:22] LABS: THYROID STIMULATING HORMONE 2.24 uIU/mL (0.34-5.60)
== END 2021-08-04 23:59 | disposition home or self-care (01) ==
LOC: LAB.N 08:00
PROVIDERS: ATTEND Family Medicine
DX: R06.09 Other forms of dyspnea (principal); I10 Essential (primary) hypertension
CPT/HCPCS: 36415; 80048; 83880; 84443; 85025

== ENCOUNTER 2021-08-04 14:54 | Outpatient (CLI) | payer MEDICARE, OTHER ==
--- NOTE | 2021-08-04 16:59 | XRAY Report ---
PROCEDURE: Chest 2 View X-Ray INDICATIONS: SOB TECHNIQUE: 2 view(s) of the chest. COMPARISON: None. FINDINGS: Surgical changes and devices: None. Lungs and pleura: No pleural effusions or pneumothorax. Right axillary upper lobe pleural thickening .. Mediastinum: Mediastinal contours are normal. Heart size is normal. Bones and chest wall: No suspicious bony abnormalities. Soft tissues appear unremarkable. IMPRESSION: 1. No acute process. Reviewed by: Nuzhat Parada MD on 08/04/2021 4:57 PM PDT Approved by: Nuzhat Parada MD on 08/04/2021 4:57 PM PDT Station ID: [id number]
== END 2021-08-04 23:59 | disposition home or self-care (01) ==
LOC: DI.N 14:54
PROVIDERS: ATTEND Family Medicine
DX: R06.02 Shortness of breath (principal); R06.09 Other forms of dyspnea; I10 Essential (primary) hypertension
CPT/HCPCS: 36415; 80048; 83880; 84443; 85025

== ENCOUNTER 2021-10-29 07:49 | Outpatient (CLI) | payer MEDICARE, OTHER | END 2021-10-29 07:50 | disposition home or self-care (01) | LOC: DI 07:49 | PROVIDERS: ATTEND Family Medicine | DX: R06.09 Other forms of dyspnea (principal); R79.9 Abnormal finding of blood chemistry, unspecified; I34.0 Nonrheumatic mitral (valve) insufficiency; I07.1 Rheumatic tricuspid insufficiency | CPT/HCPCS: 93306 ==

== ENCOUNTER 2021-11-24 10:14 | Outpatient (CLI) | payer MEDICARE, OTHER ==
--- NOTE | 2021-11-24 11:09 | XRAY Report ---
PROCEDURE: Cervical Spine 2 View INDICATIONS: NECK PAIN TECHNIQUE: 3 view(s) of the cervical spine were acquired. COMPARISON: None. FINDINGS: Bones: No fractures or dislocations to the T1 level. There are multilevel degenerative changes with disc disease at C3-4, C4-5, C5-6, C6-7, and C7-T1. There is disc space narrowing at C4-5, C5-6, and C6-7. Facet arthrosis is seen at multiple levels. No vertebral body height loss. The lateral masses o f C1 appear intact on the odontoid view. No suspicious bony lesions. Soft tissues: No prevertebral soft tissue swelling. IMPRESSION: Multilevel degenerative changes of the cervical spine and multilevel disc disease as abo ve. Reviewed by: Jean Claude Anderson on 11/24/2021 11:08 AM [facility] Approved by: Jean Claude Anderson on 11/24/2021 11:08 AM [facility] Station ID: [id number]
== END 2021-11-24 10:15 | disposition home or self-care (01) ==
LOC: DI 10:14
PROVIDERS: ATTEND Nurse Practitioner
DX: M47.812 Spondylosis without myelopathy or radiculopathy, cervical region (principal); M50.31 Other cervical disc degeneration, high cervical region

== ENCOUNTER 2022-07-01 08:54 | Day surgery (SDC) | payer MEDICARE, OTHER ==
--- NOTE | 2022-07-01 09:20 | ANESTHESIA ---
Pre-Anesthesia VS, & Labs - Diagnosis recent very large colon polyp removal - Procedure colonoscopy Vital Signs: Temp Pulse Resp BP Pulse Ox O2 Flow Rate 36.2 C L 71 16 155/86 H 100 07/01/22 09:05 07/01/22 09:05 07/01/22 09:05 07/01/22 09:05 07/01/22 09:05 Height: 5 ft 5.5 in Weight (kg): 77.6 kg Body Mass Index: 28.0 BMI Classification: Overweight - NPO >8 hours Last Fluid Intake: am prep - Is Patient ?: No - Lab Results Lab results reviewed: Yes Home Medications and Allergies Home Medications: Ambulatory Orders Losartan [Cozaar] 1 tab PO DAILY 06/30/22 amLODIPine [Norvasc] 1 tab PO DAILY 06/30/22 Acetaminophen [Tylenol Extra Strength] 1,000 mg PO BID 05/30/17 Atorvastatin Calcium 20 mg PO DAILY 05/30/17 Timolol 0.25% Ophth Drops [Timoptic 0.25% Ophth Drops] 1 drops EACHEYE DAILY 06/13/17 Ascorbic Acid [Vitamin C] 1 tab DAILY 04/12/21 Calcium Carbonate [Calcium] 1 tab PO DAILY 04/12/21 Carboxymethyl/Glycerin/Poly80 [Refresh Digital Eye Drops] 1 drops RIGHTEYE DAILY 04/12/21 Cholecalciferol [Vitamin D3] 5,000 unit PO DAILY 04/12/21 Cranberry Fruit Extract [Cranberry] 1 tab PO DAILY 04/12/21 Cyclosporine [Restasis Multidose] 1 drops EACHEYE DAILY 04/12/21 Fexofenadine/Pseudoephedrine [Hortencia-D 12 Hour Tablet] 1 tab PO DAILY PRN 04/12/21 Garlic 1 tab PO DAILY 04/12/21 L. Acidophilus/Pectin, [place] [Acidophilus Capsule] 1 cap PO DAILY 04/12/21 Losartan [Cozaar] 1 tab PO DAILY 06/30/22 amLODIPine [Norvasc] 1 tab PO DAILY 06/30/22 Allergies/Adverse Reactions: Allergies Allergy/AdvReac Type Severity Reaction Status Date / Time No Known Drug Allergies Allergy Verified 06/30/22 12:11 Anes History & Medical History - Anesthetic History Anesthesia Complications: reports: No previous complications Family history of Anesthesia Complications: Denies Family history of Malignant Hyperthermia: Denies - Medical History Cardiovascular: reports: Hypertension, High cholesterol Pulmonary: reports: None Gastrointestinal: reports: None Urinary: reports: Incontinence Musculoskeletal: reports: None Endocrine/Autoimmune: reports: None Skin: reports: None Smoking Status: Never smoker - Surgical History General: reports: Appendectomy Eyes Ears Nose Throat (EENT): reports: Cataracts, Other Gynecologic: reports: Hysterectomy, Oophrectomy Orthopedic: reports: ACL reconstruction, Other Exam General: Alert, Oriented x3, Cooperative Dental: WNL Mouth Openin Fingerbreadth Neck Mobility: Normal Mallampati classification: II Thyromental Distance: 4-6 cm Respiratory: Lungs clear, Normal breath sounds, No respiratory distress Cardiovascular: Regular rate Neurological: Normal speech Mental/Cognitive Status: Alert/Oriented X3, Normal for patient Cognitive Status: Within normal limits Plan Anesthesia Type: Total IV Consent for Procedure(s) Verified and Reviewed: Yes Code Status: Attempt Resuscitation ASA classification: 2-Mild systemic disease Is this case an emergency?: No
[2022-07-01] MEDS ORDERED: LACTATED RINGERS 1,000 ML IV ONE ×2 (09:26→11:04)
[2022-07-01] MEDS ORDERED: PROPOFOL 500 MG/50 ML 500 MG/50 ML VIAL ONE (09:44)
[2022-07-01] MEDS ORDERED: PROPOFOL 200 MG/20 ML VIAL IVP ONE (09:44)
--- NOTE | 2022-07-01 10:03 | HISTORY & PHYSICAL EXAMINATION ---
Chief Complaint - Chief Complaint Chief Complaint: here for surveillance History of Present Illness - History Obtained From Records Reviewed: yes History obtained from: pt Exam Limitations: none - History of Present Illness HPI Comment/Other: history large sigmoid colon polyp and piecemeal resection. 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, Oophrectomy HEENT: reports: Cataracts, Other Meds/Allgy - Home Medications Home Medications: Ambulatory Orders Medication Instructions Recorded Confirmed Acetaminophen [Tylenol Extra 1,000 mg PO BID 05/30/17 06/30/22 Strength] Atorvastatin Calcium 20 mg PO DAILY 05/30/17 06/30/22 Timolol 0.25% Ophth Drops 1 drops EACHEYE DAILY 06/13/17 06/30/22 [Timoptic 0.25% Ophth Drops] Ascorbic Acid [Vitamin C] 1 tab DAILY 04/12/21 06/30/22 Calcium Carbonate [Calcium] 1 tab PO DAILY 04/12/21 06/30/22 Carboxymethyl/Glycerin/Poly80 1 drops RIGHTEYE DAILY 04/12/21 06/30/22 [Refresh Digital Eye Drops] Cholecalciferol [Vitamin D3] 5,000 unit PO DAILY 04/12/21 06/30/22 Cranberry Fruit Extract [Cranberry] 1 tab PO DAILY 04/12/21 06/30/22 Cyclosporine [Restasis Multidose] 1 drops EACHEYE DAILY 04/12/21 06/30/22 Fexofenadine/Pseudoephedrine 1 tab PO DAILY PRN 04/12/21 06/30/22 [Hortencia-D 12 Hour Tablet] Garlic 1 tab PO DAILY 04/12/21 06/30/22 L. Acidophilus/Pectin, [place] 1 cap PO DAILY 04/12/21 06/30/22 [Acidophilus Capsule] Losartan [Cozaar] 1 tab PO DAILY 06/30/22 06/30/22 amLODIPine [Norvasc] 1 tab PO DAILY 06/30/22 06/30/22 - Allergies Allergies/Adverse Reactions: Allergies Allergy/AdvReac Type Severity Reaction Status Date / Time No Known Drug Allergies Allergy Verified 06/30/22 12:11 Review of Systems - Other Findings Other Findings: 10 pt ros as above otherwise unremarkable Exam - Vital Signs Reviewed Vital Signs: Yes Vital Signs: Vital Signs x48h Temp Pulse Resp BP Pulse Ox 07/01/22 09:05 36.2 C L 71 16 155/86 H 100 - Physical Exam General Appearance: positive: No acute distress, Alert Eyes Bilateral: positive: PERRL, EOMI ENT: positive: No signs of dehydration Neck: positive: No JVD, Trachea midline Respiratory: positive: Breath sounds nml Cardiovascular: positive: Regular rate & rhythm Abdomen: positive: Non-tender, No distention Neurologic/Psychiatric: positive: Oriented x3 Conclusion/Plan - Problem List (1) History of adenomatous polyp of colon Conclusion/Plan: plan colonoscopy. parq held and consent obtained - Lab Results Lab results reviewed: Yes
[2022-07-01] MEDS ORDERED: MIDAZOLAM 2 MG/2 ML VIAL ONE (10:13)
--- NOTE | 2022-07-01 11:27 | ANESTHESIA POST OP EVALUATION ---
Anesthesia Post Eval - Post Anesthesia Eval Vitals: Last Vital Signs Temp 36.2 C L 07/01/22 11:25 Pulse 58 L 07/01/22 11:25 Resp 16 07/01/22 11:25 BP 133/67 H 07/01/22 11:25 Pulse Ox 100 07/01/22 11:25 O2 Flow Rate CV Function Including HR & BP: Stable Pain Control: Satisfactory Nausea & Vomiting: Negative Mental Status: Baseline Respiratory Status: Airway Patent Hydration Status: Satisfactory Anesthesia Complications: None
[2022-07-01 12:06] VITALS: BP 136/82
== END 2022-07-01 08:55 | disposition home or self-care (01) ==
LOC: SDS 08:54
PROVIDERS: ATTEND Surgery
PROC: 0DBP8ZX Excision of Rectum, Via Natural or Artificial Opening Endoscopic, Diagnostic (ICD-10-PCS; 2022-07-01)
PROC: 0DBH8ZX Excision of Cecum, Via Natural or Artificial Opening Endoscopic, Diagnostic (ICD-10-PCS; principal; 2022-07-01 10:00)
DX: Z12.11 Encounter for screening for malignant neoplasm of colon (principal); D12.0 Benign neoplasm of cecum; D12.8 Benign neoplasm of rectum; K57.30 Diverticulosis of large intestine without perforation or abscess without bleeding; Z86.010 Personal history of colon polyps; I10 Essential (primary) hypertension
CPT/HCPCS: 45380; 45385; J7120

== ENCOUNTER 2023-01-13 07:48 | Day surgery (SDC) | payer MEDICARE, OTHER ==
[2023-01-13] MEDS ORDERED: LACTATED RINGERS 1,000 ML IV ONE ×2 (09:21→11:09)
--- NOTE | 2023-01-13 09:30 | ANESTHESIA ---
Pre-Anesthesia VS, & Labs - Diagnosis hitory of polyps - Procedure colonoscopy Vital Signs: Temp Pulse Resp BP Pulse Ox O2 Flow Rate 36.6 C 62 16 132/73 H 100 0 01/13/23 08:04 01/13/23 08:04 01/13/23 08:04 01/13/23 08:04 01/13/23 08:04 01/13/23 08:04 Height: 5 ft 5 in Weight (kg): 79 kg Body Mass Index: 29.0 BMI Classification: Overweight - NPO >8 hours - Is Patient ?: No Home Medications and Allergies Acetaminophen [Tylenol Extra Strength] 1,000 mg PO BID 05/30/17 Atorvastatin Calcium 20 mg PO DAILY 05/30/17 Timolol 0.25% Ophth Drops [Timoptic 0.25% Ophth Drops] 1 drops EACHEYE DAILY 06/13/17 Ascorbic Acid [Vitamin C] 1 tab DAILY 04/12/21 Calcium Carbonate [Calcium] 1 tab PO DAILY 04/12/21 Carboxymethyl/Glycerin/Poly80 [Refresh Digital Eye Drops] 1 drops RIGHTEYE DAILY 04/12/21 Cholecalciferol [Vitamin D3] 5,000 unit PO DAILY 04/12/21 Cranberry Fruit Extract [Cranberry] 1 tab PO DAILY 04/12/21 Cyclosporine [Restasis Multidose] 1 drops EACHEYE DAILY 04/12/21 Fexofenadine/Pseudoephedrine [Hortencia-D 12 Hour Tablet] 1 tab PO DAILY PRN 04/12/21 Garlic 1 tab PO DAILY 04/12/21 L. Acidophilus/Pectin, [place] [Acidophilus Capsule] 1 cap PO DAILY 04/12/21 Losartan [Cozaar] 1 tab PO DAILY 06/30/22 amLODIPine [Norvasc] 1 tab PO DAILY 06/30/22 Allergies/Adverse Reactions: Allergies Allergy/AdvReac Type Severity Reaction Status Date / Time No Known Drug Allergies Allergy Verified 06/30/22 12:11 Anes History & Medical History - Anesthetic History Anesthesia Complications: reports: No previous complications - Medical History Cardiovascular: reports: Hypertension, High cholesterol, Murmur Pulmonary: reports: None Gastrointestinal: reports: Colon polyps Urinary: reports: Incontinence Musculoskeletal: reports: Osteoarthritis Endocrine/Autoimmune: reports: None Skin: reports: None Smoking Status: Never smoker - Surgical History General: reports: Appendectomy Eyes Ears Nose Throat (EENT): reports: Cataracts, Other Gynecologic: reports: Hysterectomy Orthopedic: reports: Hip replacement, Other Exam General: Alert, Oriented x3 Dental: WNL Mouth Opening: Greater than 4 Fingerbreadths Neck Mobility: Normal Mallampati classification: II Thyromental Distance: greater than 6 cm Respiratory: Lungs clear Cardiovascular: Regular rate, Normal S1, Normal S2 Plan Anesthesia Type: Total IV Consent for Procedure(s) Verified and Reviewed: Yes Code Status: Attempt Resuscitation ASA classification: 2-Mild systemic disease Is this case an emergency?: No
--- NOTE | 2023-01-13 10:40 | HISTORY & PHYSICAL EXAMINATION ---
Chief Complaint - Chief Complaint Chief Complaint: here for surveillance colonoscopy History of Present Illness - History Obtained From Records Reviewed: yes History obtained from: pt Exam Limitations: none - History of Present Illness HPI Comment/Other: history large flat polyp upper rectum. here for surveillance. 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 HEENT: reports: Cataracts, Other Meds/Allgy - Home Medications Home Medications: Ambulatory Orders Medication Instructions Recorded Confirmed Acetaminophen [Tylenol Extra 1,000 mg PO BID 05/30/17 01/13/23 Strength] Atorvastatin Calcium 20 mg PO DAILY 05/30/17 01/13/23 Timolol 0.25% Ophth Drops 1 drops EACHEYE DAILY 06/13/17 01/13/23 [Timoptic 0.25% Ophth Drops] Ascorbic Acid [Vitamin C] 1 tab DAILY 04/12/21 01/13/23 Calcium Carbonate [Calcium] 1 tab PO DAILY 04/12/21 01/13/23 Carboxymethyl/Glycerin/Poly80 1 drops RIGHTEYE DAILY 04/12/21 01/13/23 [Refresh Digital Eye Drops] Cholecalciferol [Vitamin D3] 5,000 unit PO DAILY 04/12/21 01/13/23 Cranberry Fruit Extract [Cranberry] 1 tab PO DAILY 04/12/21 01/13/23 Cyclosporine [Restasis Multidose] 1 drops EACHEYE DAILY 04/12/21 01/13/23 Fexofenadine/Pseudoephedrine 1 tab PO DAILY PRN 04/12/21 01/13/23 [Hortencia-D 12 Hour Tablet] Garlic 1 tab PO DAILY 04/12/21 01/13/23 L. Acidophilus/Pectin, [place] 1 cap PO DAILY 04/12/21 01/13/23 [Acidophilus Capsule] Losartan [Cozaar] 1 tab PO DAILY 06/30/22 01/13/23 amLODIPine [Norvasc] 1 tab PO DAILY 06/30/22 01/13/23 - Allergies Allergies/Adverse Reactions: Allergies Allergy/AdvReac Type Severity Reaction Status Date / Time No Known Drug Allergies Allergy Verified 06/30/22 12:11 Review of Systems - Other Findings Other Findings: 10 pt ros as above otherwise unremarkable Exam - Vital Signs Reviewed Vital Signs: Yes Vital Signs: Vital Signs x48h Temp Pulse Resp BP Pulse Ox O2 Flow Rate 01/13/23 08:04 36.6 C 62 16 132/73 H 100 0 - Physical Exam General Appearance: positive: No acute distress Eyes Bilateral: positive: PERRL, EOMI ENT: positive: No signs of dehydration Neck: positive: No JVD, Trachea midline Respiratory: positive: No respiratory distress, Breath sounds nml Cardiovascular: positive: Regular rate & rhythm Abdomen: positive: Non-tender, No distention Neurologic/Psychiatric: positive: Oriented x3 Conclusion/Plan - Problem List (1) History of adenomatous polyp of colon Conclusion/Plan: plan sigmoidoscopy. parq held and consent obtained
[2023-01-13] MEDS ORDERED: PROPOFOL 200 MG/20 ML VIAL IVP ONE (10:50)
[2023-01-13 11:25] VITALS: BP 110/91
--- NOTE | 2023-01-13 12:17 | ANESTHESIA POST OP EVALUATION ---
Anesthesia Post Eval - Post Anesthesia Eval Vitals: Last Vital Signs Temp 36.4 C L 01/13/23 11:24 Pulse 67 01/13/23 11:24 Resp 16 01/13/23 11:24 BP 110/91 H 01/13/23 11:24 Pulse Ox 99 01/13/23 11:24 O2 Flow Rate 0 01/13/23 08:04 CV Function Including HR & BP: Stable Pain Control: Satisfactory Nausea & Vomiting: Negative Mental Status: Baseline Respiratory Status: Airway Patent Hydration Status: Satisfactory Anesthesia Complications: None
== END 2023-01-13 07:49 | disposition home or self-care (01) ==
LOC: SDS 07:48
PROVIDERS: ATTEND Surgery
PROC: 0DBP8ZX Excision of Rectum, Via Natural or Artificial Opening Endoscopic, Diagnostic (ICD-10-PCS; principal; 2023-01-13 10:00)
DX: D12.8 Benign neoplasm of rectum (principal); K57.30 Diverticulosis of large intestine without perforation or abscess without bleeding; I10 Essential (primary) hypertension
CPT/HCPCS: 45331; J7120

== ENCOUNTER 2023-02-28 10:16 | Outpatient (CLI) | payer MEDICARE, OTHER ==
[2023-02-28 10:40] LABS: BASOPHILS % (AUTO) 0.8 %; EOSINOPHILS # (AUTO) 0.2 10^3/uL (0.0-0.7); EOSINOPHILS % (AUTO) 3.1 %; HCT - HEMATOCRIT 42.4 % (37.0-47.0); HGB - HEMOGLOBIN 14.1 g/dL (12.0-16.0); LYMPHOCYTES # (AUTO) 1.3 10^3/uL (1.5-3.5); LYMPHOCYTES % (AUTO) 25.4 %; MEAN CORPUSCULAR HEMOGLOBIN 31.3 pg (27.0-31.0); MEAN CORPUSCULAR HGB CONC 33.3 g/dL (32.0-36.0); MEAN CORPUSCULAR VOLUME 94.2 fL (81.0-99.0); MEAN PLATELET VOLUME 9.9 fL (7.9-10.8); MONOCYTES # (AUTO) 0.6 10^3/uL (0.0-1.0); MONOCYTES % (AUTO) 11.1 %; NEUTROPHILS % (AUTO) 59.4 %; PLT - PLATELET COUNT 194 10^3/uL (130-450); RED CELL DISTRIBUTION WIDTH 12.4 % (12.0-15.0); WHITE BLOOD COUNT 5.1 x10^3/uL (4.8-10.8)
[2023-02-28 10:50] LABS: ALBUMIN 4.3 g/dL (3.2-5.5); ALBUMIN/GLOBULIN RATIO 1.3 (1.0-2.2); CALCIUM 9.6 mg/dL (8.5-10.3); POTASSIUM 5.3 mmol/L (3.5-5.0); TOTAL PROTEIN 7.7 g/dL (6.7-8.2)
[2023-02-28 11:08] LABS: THYROID STIMULATING HORMONE 2.42 uIU/mL (0.34-5.60)
== END 2023-02-28 10:17 | disposition home or self-care (01) ==
LOC: LAB 10:16
PROVIDERS: ATTEND Nurse Practitioner
DX: I10 Essential (primary) hypertension (principal); G62.9 Polyneuropathy, unspecified
CPT/HCPCS: 36415; 80053; 82607; 84443; 85025